=== PATIENT | male | born 1990 | race African-American/Black ===

== ENCOUNTER 2020-04-19 21:25 | Observation (INO) ==
[2020-04-19] MEDS ORDERED: Isovue-370 500 ML BOTTLE IVP ONE ×2 (21:35→21:39)
[2020-04-19 21:44] LABS: Hematocrit 39.9 % (37.5-50.1); Hemoglobin 13.5 g/dL (12.9-16.9); Mean Corpuscular HGB Conc 33.8 g/dL (31.6-35.5); Mean Corpuscular Hemoglobin 29.9 pg (28.0-33.3); Mean Corpuscular Volume 88.5 fL (83.0-100.0); Mean Platelet Volume 11.1 fL (9.4-12.4); Platelet Count 242 K/mcL (140-400); Red Blood Count 4.51 M/mcL (4.19-5.50); Red Cell Distribution Width 13.2 % (11.5-14.5); White Blood Count 15.5 K/mcL (4.3-11.1)
[2020-04-19 21:51] LABS: Prothrombin Time 11.6 Seconds (9.4-12.1)
[2020-04-19 21:54] LABS: Activated Partial Thrombo Time 27.9 Seconds (26.0-36.0)
[2020-04-19 22:09] LABS: BUN/Creatinine Ratio 13 (6-26); Blood Urea Nitrogen 10 mg/dL (6-20); Calcium 8.8 mg/dL (8.6-10.3); Carbon Dioxide 20 mEq/L (23-29); Chloride 102 mEq/L (98-107); Creatine Kinase 52 Units/L (30-223); Ethanol < 10 mg/dL (Less than 10); Glucose 303 mg/dL (70-105); Osmolality,Calculated 290 (280-300); Potassium 3.8 mEq/L (3.5-5.1); Sodium 135 mEq/L (136-145); eGFR For African Americans > 60 (> 60); eGFR For Non-African Americans > 60 (> 60)
[2020-04-19 22:17] LABS: Troponin I < 0.03 ng/mL (< 0.04)
[2020-04-19 23:13] LABS: Bacteria,Urine Few per hpf (None-Few); Bilirubin,Urine Negative (Negative); Blood,Urine Negative (Negative); Clarity,Urine Clear (Clear); Color,Urine Light-Yellow (Yellow); Glucose,Urine (UA) >=1000 mg/dL (Normal); Ketones,Urine Trace mg/dL (Negative); Leukocyte Esterase,Urine Negative (Negative); Mucus,Urine Few per lpf (None-Few); Nitrite,Urine Negative (Negative); PH,Urine 6.5 pH Units (5.0-8.0); Protein,Urine Trace mg/dL (Neg-Trace); RBC,Urine 0-3 per hpf (0-3); Specific Gravity,Urine > 1.030 (1.010-1.025); Urobilinogen,Urine Normal (Normal); WBC,Urine 0-3 per hpf (0-3)
[2020-04-19 23:22] LABS: Amphetamine Screen,Urine Negative ng/mL (Cutoff=1000); Barbiturate Screen,Urine Negative ng/mL (Cutoff=200); Benzodiazepines Screen,Urine Negative ng/mL (Cutoff=200); Cannabinoid Screen,Urine Negative ng/mL (Cutoff = 50); Cocaine Screen,Urine Negative ng/mL (Cutoff= 300); Opiate Screen,Urine Negative ng/mL (Cutoff=300); Phencyclidine Screen,Urine Negative ng/mL (Cutoff=25)
[2020-04-20] MEDS ORDERED: Acetaminophen 325 MG TABLET PO PRN (03:27)
[2020-04-20] MEDS ORDERED: Naloxone 0.4 MG/ML INJ IVP PRN (03:27)
[2020-04-20] MEDS ORDERED: Ondansetron 4 MG/2 ML VIAL IVP PRN (03:27)
[2020-04-20 05:18] LABS: Adenovirus Not Detected (Not Detect); Bordetella Pertussis Not Detected (Not Detect); Chlamydophila pneumoniae Not Detected (Not Detect); Coronavirus 229E Not Detected (Not Detect); Coronavirus HKU1 Not Detected (Not Detect); Coronavirus NL63 Not Detected (Not Detect); Coronavirus OC43 Not Detected (Not Detect); Human Metapneumovirus Not Detected (Not Detect); Human Rhinovirus/Enterovirus Not Detected (Not Detect); Influenza A Subtype 2009 H1 Not Detected (Not Detect); Influenza B Not Detected (Not Detect); Mycoplasma pneumoniae Not Detected (Not Detect); Parainfluenza Virus 1 Not Detected (Not Detect); Parainfluenza Virus 2 Not Detected (Not Detect); Parainfluenza Virus 3 Not Detected (Not Detect); Parainfluenza Virus 4 Not Detected (Not Detect); Respiratory Syncytial Virus Not Detected (Not Detect); SARS-CoV-2 Not Detected (Not Detect)
[2020-04-20 06:04] LABS: Basophils % 0.2 %; Eosinophils # 0.1 K/mcL (0.0-0.6); Eosinophils % 0.9 %; Hematocrit 41.1 % (37.5-50.1); Hemoglobin 13.7 g/dL (12.9-16.9); Immature Granulocytes % 0.3 % (0-4); Lymphocytes # 4.1 K/mcL (0.6-4.6); Lymphocytes % 31.2 %; Mean Corpuscular HGB Conc 33.3 g/dL (31.6-35.5); Mean Corpuscular Volume 89.9 fL (83.0-100.0); Monocytes # 0.8 K/mcL (0.0-1.3); Monocytes % 6.2 %; Platelet Count 230 K/mcL (140-400); Red Blood Count 4.57 M/mcL (4.19-5.50); Red Cell Distribution Width 13.1 % (11.5-14.5); Segmented Neutrophils % 61.2 %; White Blood Count 13.1 K/mcL (4.3-11.1)
[2020-04-20] MEDS ORDERED: Gadolinium Contrast Agent (WT Based) IV PRN (06:23)
[2020-04-20 06:27] LABS: Alanine Aminotransferase 17 Units/L (7-52); Albumin 4.3 g/dL (3.5-5.7); Albumin/Globulin Ratio 1.6 (1.1-2.2); Alkaline Phosphatase 69 Units/L (34-104); Aspartate Amino Transferase 8 Units/L (13-39); BUN/Creatinine Ratio 11 (6-26); Bilirubin,Total 0.4 mg/dL (0.3-1.0); Blood Urea Nitrogen 8 mg/dL (6-20); Calcium 9.2 mg/dL (8.6-10.3); Carbon Dioxide 25 mEq/L (23-29); Chloride 104 mEq/L (98-107); Chol/HDL Ratio 4.4 (0-4.9); Cholesterol 168 mg/dL (< 200); Globulin 2.7 g/dL (2.4-3.5); Glucose 197 mg/dL (70-105); HDL Cholesterol 38 mg/dL (40-59); LDL Cholesterol,Calculated 104 mg/dL (< 100); Magnesium 2.3 mg/dL (1.6-2.6); Osmolality,Calculated 290 (280-300); Phosphorous 4.5 mg/dL (2.7-4.5); Potassium 3.8 mEq/L (3.5-5.1); Sodium 138 mEq/L (136-145); Triglycerides 131 mg/dL (< 150); eGFR For African Americans > 60 (> 60); eGFR For Non-African Americans > 60 (> 60)
[2020-04-20] MEDS ORDERED: Nicotine 21 MG PATCH.TD24 TD PRN (07:28)
[2020-04-20] MEDS ORDERED: D5% in Water 1,000 ML IVC PRN (07:30)
[2020-04-20] MEDS ORDERED: *HR* Dextrose 50 % in Water (Vial) 50 ML VIAL IVP PRN (07:30)
[2020-04-20] MEDS ORDERED: Dextrose Gel 15 GM/37.5 ML TUBE PO PRN ×2 (07:30)
[2020-04-20] MEDS ORDERED: 0.9 % Sodium Chloride 1,000 ML IVC ONE (07:33)
[2020-04-20] MEDS: Insulin LISPRO 300 UNITS/3 ML VIAL SUBQ SCH ×3 (08:16→16:46)
[2020-04-20] MEDS: Pantoprazole 40 MG VIAL IVP SCH (10:04)
[2020-04-20 10:39] LABS: Lipase 24 Units/L (11-82)
[2020-04-20 11:26] LABS: Estimated Average Glucose 217 mg/dl; Hemoglobin A1C 9.2 %
[2020-04-20] MEDS: Metoclopramide 10 MG/2 ML VIAL IVP SCH ×2 (11:47→17:18)
[2020-04-20] MEDS ORDERED: Insulin LISPRO 300 UNITS/3 ML VIAL SUBQ SCH (21:00)
[2020-04-21] MEDS: Metoclopramide 10 MG/2 ML VIAL IVP SCH ×2 (00:19→06:24)
[2020-04-21] MEDS: Insulin LISPRO 300 UNITS/3 ML VIAL SUBQ SCH (09:31)
[2020-04-21] MEDS: Pantoprazole 40 MG VIAL IVP SCH (09:35)
[2020-04-21 10:54] VITALS: BP 133/89
== END 2020-04-21 15:05 | disposition home or self-care (01) ==
LOC: EMEROOARM 21:25 → 3BNU 21:25 → SUATTDRO 04-20 01:00 → 3BNU 04-20 01:05
PROVIDERS: ADMIT Internal Medicine; ATTEND Internal Medicine